=== PATIENT | male | born 1970 | race Caucasian/White ===

== ENCOUNTER 2023-10-01 18:18 | Emergency (ER) | payer BC, SELFPAY ==
[2023-10-01 18:26] VITALS: BP 158/110
--- NOTE | 2023-10-01 19:58 | ED.MUSCINJ ---
HPI-Injury
General
Chief Complaint: Musculo-Skeletal Complaint
Source: patient
Exam Limitations: none
Time Seen by Provider: 10/01/23 19:44
Nursing documentation reviewed up to this point in time: agreed with
Travel History
Have you had any contact with someone who has COVID-19?: No
Do you have any symptoms of coronavirus? Fever > 100 degrees, chills, cough, shortness of breath, sore throat, loss of taste or smell, muscle aches, or headache?: No
History of Present Illness-Injury
Is this injury a work related problem?: No
Is pt an associate of [facility]?: No
Initial Injury comments:
52-year male right hand pain after punching a wall occurred just prior to arrival he is right-hand dominant similar injury many years ago did not see an orthopedist
Past History
Past History
ED Past Medical History: Hypercholesterolemia
ED Past Surgical History: None
Social History
Tobacco: Non-smoker
Personal:
Living: with family
Employment: Employed (Teacher)
Family History
Family History: CAD (Grandfather at 62)
Review of Systems
Review of Systems
Other source history: family
All Other Systems: Not applicable
Musculoskeletal: Reports joint pain and joint swelling
Phy Exam
Physical Exam
Physical Exam:
Physical Exam
General: no apparent distress, not acutely ill
Neck: No jaundice
Lungs: no acute respiratory distress.
Abdomen: normal bowel sounds. not tender. no CVAT
Neuro: alert and oriented.
Skin: Warm and dry
Psychiatric: cooperative
Extremities: Tenderness of the fifth metatarsal no rotational deformity
Injury Course
Orders/Labs/Results
Orders:
Orders
10/01/23 18:29
Hand, Right 3 View [CR Hand - Right Min 3 Views] Urgent
Comment:
Reason For Exam: pain
10/01/23 19:50
Splints/Slings/Crut- Treatment ONCE
10/01/23 19:57
Ibuprofen [Motrin] 600 mg PO NOW STA
MDM/Problems Addressed
Differential Diagnosis Includes:
Fracture contusion strain
MDM/Problems Addressed:
Hand pain
*Radiology
Radiology exam reviewed: radiology read reviewed
*Pulse Oximetry
Patient hypoxic: no
*Critical Care Note
Total Time (30-74mins, 75-104mins- exclusive of procedures): Not Applicable
Update Note
Update Note:
Isolated fifth metacarpal tenderness, without patient reportedly will splint, follow-up nonurgent orthopedics
ED Attending Note
-
Portions of this chart may have been created with voice recognition software.� Occasional wrong word or��sound alike� substitutions may have occurred due to the inherent limitations of voice recognition software.
Discharge Plan
Departure
Patient Disposition: Home (Routine Discharge)
Date of Disposition: 10/01/23
Time of Disposition: 20:01
Patient with high blood pressure during this ER visit?: No
Covid-19: Not Applicable
Discharge Problem:
Closed hand fracture
Instructions: Boxer's Fracture (DC)
Prescriptions:
New
ibuprofen 600 mg tablet
600 mg PO Q6H PRN (Reason: Pain) Qty: 20 0RF
oxycodone 5 mg tablet
5 mg PO Q8H PRN (Reason: Pain) Qty: 10 0RF
No Action
atorvastatin [Lipitor] 20 MG tablet
20 mg PO DAILY
Patient Comments:
Has not taken for 2 months
cetirizine 10 MG tablet
10 mg PO DAILY
ibuprofen 200 MG tablet
400 mg PO Q6HPRN PRN (Reason: pain)
sulfamethoxazole-trimethoprim 1 TABLET tablet
1 tab PO BID Qty: 10 0RF
oxycodone-acetaminophen 5 MG/325 MG tablet
1 - 2 tab PO Q4HPRN PRN (Reason: Pain) Qty: 20 0RF
ibuprofen 800 MG tablet
800 mg PO Q8 Qty: 20 0RF
tamsulosin [Flomax] 0.4 MG capsule
0.4 mg PO Daily Qty: 10 0RF
Referrals:
Christoph Baptiste MD [Active] - Next open appointment
[2023-10-01] MEDS: MOTRIN 600 MG PO (20:51)
[2023-10-01 20:55] VITALS: BP 170/91
[2023-10-01 20:58] VITALS: BP 170/91
== END 2023-10-01 20:59 | disposition home or self-care (01) ==
LOC: EMR 18:18
PROVIDERS: EMERGENCY PHYSICIAN Emergency Medicine; FAMILY PHYSICIAN Family Medicine
DX: S62.91XA Unspecified fracture of right hand, initial encounter for closed fracture (principal); X58.XXXA Exposure to other specified factors, initial encounter; E78.00 Pure hypercholesterolemia, unspecified; Z82.49 Family history of ischemic heart disease and other diseases of the circulatory system
CPT/HCPCS: 99283; 73130

== ENCOUNTER 2025-01-30 20:46 | Emergency (ER) | payer BC, SELFPAY ==
[2025-01-30 20:49] VITALS: BP 214/108
[2025-01-30 20:55] VITALS: BP 175/133
--- NOTE | 2025-01-30 20:59 | ED.GENMED ---
History of Present Illness
General
Chief Complaint: Flank Pain
Source: patient
Exam Limitations: none
Time Seen by Provider: 01/30/25 20:52
History of Present Illness
History of Present Illness:
54yoM with a history of hyperlipidemia, kidney stones, and GERD presenting with his for evaluation of flank pain. Symptoms began fairly abruptly at 5pm this evening. He reports severe pain in his left flank which radiates to the LLQ. He is
also having nausea but denies any vomiting. He denies any dysuria or hematuria. Symptoms feel identical to his previous kidney stones.
Past History
Past History
ED Past Medical History: Hypercholesterolemia
ED Past Surgical History: None
Social History
Tobacco: Non-smoker
Personal:
Living: with family
Employment: Employed (Teacher)
Family History
Family History: CAD (Grandfather at 62)
Phy Exam
Physical Exam
Physical Exam:
Appears uncomfortable, writhing around on stretcher
General Physical Exam
General Presentation: moderate distress
General Skin: warm and dry
General Habitus: normal
General Mental: alert
ENT Exam
ENT Exam: normocephalic
Pulmonary Exam
Pulmonary Exam: no respiratory distress
Gastrointestinal Exam
Gastrointestinal Exam: soft, non distended and other (+Mild tenderness in LLQ. +L CVA tenderness.)
Neurological Exam
Neurological Exam: alert
Nakul Coma Scale
Eye Opening: Spontaneous
Verbal Response: Oriented
Motor Response: Obeys Commands
GCS Total Score: 15
Skin Exam
Skin Exam: normal color and warm/dry
Psychiatric Exam
Psychiatric Exam: normal mood/affect
Course
Orders/Labs/Results
Orders:
Orders
01/30/25 20:57
0.9% Sodium Chloride 1000 ml [Nss] 1,000 ml IV BOLUS
HYDROmorphone [Dilaudid] 1 mg IV NOW STA
Ketorolac [Toradol] 15 mg IV NOW STA
Ondansetron Injectable [Zofran] 4 mg IV NOW STA
01/30/25 20:58
CT Abd/pel Without Iv Or Oral Urgent
Comment:
Reason For Exam: L flank pain, LLQ pain
01/30/25 21:06
Complete Blood Count/With Diff Urgent
Comprehensive Metabolic Panel Urgent
Urinalysis Reflex To Culture Urgent
Date Specimen was Collected: 01/30/25
Time Specimen was Collected: 21:00
Urine Microscopic Reflex Cult Urgent
01/30/25 22:24
HYDROmorphone [Dilaudid] 1 mg IV NOW STA
Ketorolac [Toradol] 15 mg IV NOW STA
Tamsulosin [Flomax] 0.4 mg PO NOW STA
01/30/25 22:37
Ketorolac [Toradol] 15 mg .ROUTE .STK-MED ONE
Abnormal Lab Results
01/30/25
21:06
WBC 12.9 H 10^3/uL
(4.8-10.8)
Absolute Neuts (auto) 10.9 H 10^3/uL
(1.4-6.5)
Neutrophils % 84.1 H %
(42.2-75.2)
Lymphocytes % 9.4 L %
(20.5-51.1)
Chloride 109 H mmol/L
(98-107)
Glucose 138 H mg/dl
(70-99)
Albumin 5.1 H g/dl
(3.5-5.0)
Urine Ketones 3+ A
(Negative)
Ur Occult Blood Reflex 1+ A
(Negative)
Urine RBC 7-10 A /HPF
(0-2)
Urine Bacteria (Reflex) Few A
(Negative)
01/30/25 21:06
05/22/25 21:06
Vital Signs
Initial and Last Documented VS:
Initial Vital Signs
Temp Pulse Resp BP Pulse Ox
97.8 F 58 16 214/108 100
01/30/25 20:49 01/30/25 20:49 01/30/25 20:49 01/30/25 20:49 01/30/25 20:49
Last Documented Vital Signs
Temp Pulse Resp BP Pulse Ox
97.8 F 58 16 175/133 100
01/30/25 20:49 01/30/25 20:49 01/30/25 20:49 01/30/25 20:55 01/30/25 20:49
MDM/Problems Addressed
Differential Diagnosis Includes:
54yoM here with L flank pain. Began abruptly this evening. Radiates to the LLQ. +Nausea. He is hypertensive on arrival with otherwise stable vitals. He is uncomfortable on exam and writhing around on exam. Differential diagnosis includes but is not
limited: kidney stone, pyelonephritis, UTI, diverticulitis, musculoskeletal, doubt but consider AAA
Initial ED plan: Check CBC, CMP, UA, and CT abdomen without contrast. IV Dilaudid, Toradol, Zofran, and fluid bolus for symptoms.
*Critical Care Note
Total Time (30-74mins, 75-104mins- exclusive of procedures): Not Applicable
Update Note
Update Note:
CT confirms a 2mm L UVJ stone. Creatinine 1.1 and there are no signs of infection on urinalysis. Coronary artery calcifications incidentally seen on CT which patient and were notified of. He denies any history of heart disease. Advised
outpatient f/u with cardiology. No indication for hospitalization. Supportive care discussed including hydration, urine straining, and Flomax. Prescriptions given for oxycodone and Zofran. Advised close f/u with urology and ED return precautions
reviewed including fevers and uncontrolled pain. Patient discharged in stable condition.
ED Attending Note
-
Portions of this chart may have been created with voice recognition software.� Occasional wrong word or��sound alike� substitutions may have occurred due to the inherent limitations of voice recognition software.
Discharge Plan
Departure
Patient Disposition: Home (Routine Discharge)
Date of Disposition: 01/30/25
Time of Disposition: :25
Patient with high blood pressure during this ER visit?: Yes
Discharge Problem:
Calculus of distal left ureter, Coronary artery calcification seen on CT scan
Instructions: Kidney Stones (DC), How to Strain Your Urine
Prescriptions:
New
oxycodone 5 mg tablet
5 mg PO Q6H PRN (Reason: Pain) Qty: 12 0RF
ondansetron 4 mg tablet,disintegrating
4 mg PO Q6H PRN (Reason: nausea and vomiting) Qty: 20 0RF
tamsulosin [Flomax] 0.4 mg capsule
0.4 mg PO HS Qty: 7 0RF
No Action
atorvastatin [Lipitor] 20 MG tablet
20 mg PO DAILY
Patient Comments:
Has not taken for 2 months
cetirizine 10 MG tablet
10 mg PO DAILY
ibuprofen 200 MG tablet
400 mg PO Q6HPRN PRN (Reason: pain)
sulfamethoxazole-trimethoprim 1 TABLET tablet
1 tab PO BID Qty: 10 0RF
oxycodone-acetaminophen 5 MG/325 MG tablet
1 - 2 tab PO Q4HPRN PRN (Reason: Pain) Qty: 20 0RF
ibuprofen 800 MG tablet
800 mg PO Q8 Qty: 20 0RF
tamsulosin [Flomax] 0.4 MG capsule
0.4 mg PO Daily Qty: 10 0RF
ibuprofen 600 mg tablet
600 mg PO Q6H PRN (Reason: Pain) Qty: 20 0RF
oxycodone 5 mg tablet
5 mg PO Q8H PRN (Reason: Pain) Qty: 10 0RF
Referrals:
Kendrick Umana MD [Active] -
Phillip Elena MD [Active] -
NONE,* [Family Provider] -
Activity Restrictions/Additional Instructions:
Drink plenty of fluids. Strain your urine and take Flomax until stone has passed.
Take Tylenol and ibuprofen for pain. Take oxycodone only as needed for severe breakthrough pain. Take Zofran as needed for nausea.
Please call tomorrow to schedule a follow-up with urology. Return to the ER with any worsening symptoms including uncontrolled pain or fevers.
You should also see a bobbin sorter for the calcifications seen on your heart arteries on today's CT scan.
Interventions
Interventions:
*Risk Screen - Suicide Last Done: 01/30/25 21:14
*General Assessment Last Done: 01/30/25 20:49
*Neglect/Abuse Screening Last Done: 01/30/25 21:14
*ED- Fall Risk Assessment Last Done: 01/30/25 21:14
*ED COVID-19 Vaccine History Last Done: 01/30/25 20:49
*Nursing Disposition Last Done: 01/30/25 23:05
JD-Mjmhti-Nxaldealzc Assessment Last Done: 01/30/25 21:14
ED-Male Genitourinary Assessment Last Done: 01/30/25 21:14
Discharge Date and Time
Discharge Date/Time: 01/30/25 23:06
Print Language: MAORI
[2025-01-30] MEDS: DILAUDID 1 MG IV ×2 (21:04→22:35)
[2025-01-30] MEDS: NSS 1000 IV (21:05)
[2025-01-30] MEDS: ZOFRAN 4 MG IV (21:06)
[2025-01-30] MEDS: TORADOL 15 MG IV ×2 (21:06→22:37)
[2025-01-30 21:14] LABS: % Basophils 0.4 % (0-2); % Eosinophils 1.1 % (0-6); % Immature Granulocytes 0.3 % (0-0.5); % Lymphocytes 9.4 % (20.5-51.1); % Monocytes 4.7 % (1.7-9.3); % Neutrophils 84.1 % (42.2-75.2); Absolute Basophils 0.1 10^3/uL (0-0.2); Absolute Eosinophils 0.1 10^3/uL (0-0.7); Absolute Lymphocytes 1.2 10^3/uL (1.2-3.4); Absolute Monocytes 0.6 10^3/uL (0.1-0.6); Absolute Neutrophils 10.9 10^3/uL (1.4-6.5); Hematocrit 41.1 % (39.0-52.0); Hemoglobin 14.7 g/dL (13.0-18.0); Mean Corp Hgb Conc. 35.8 g/dL (33.0-37.0); Mean Corpuscular Hgb 30.6 pg (27.0-31.0); Mean Corpuscular Volume 85.4 fL (80.0-94.0); Mean Platelet Volume 9.5 fL (7.4-10.4); Nucleated Red Blood Cells % 0 % (-); Platelet Count 285 10^3/uL (130-400); Red Blood Cell Count 4.81 10^6/uL (4.70-6.10); Red Cell Dist. Width 12.5 % (11.5-14.5); White Blood Cell Count 12.9 10^3/uL (4.8-10.8)
[2025-01-30 21:16] LABS: Urine Albumin Negative (Neg - Trace); Urine Bilirubin Negative (Negative); Urine Character Clear (Clear); Urine Color Yellow; Urine Glucose Negative (Negative); Urine Ketone 3+ (Negative); Urine Leukocyte Negative (Negative); Urine Nitrite Negative (Negative); Urine Occult Blood 1+ (Negative); Urine Specific Gravity 1.015 (<1.030); Urine Urobilinogen Negative (Neg - 1+)
[2025-01-30 21:21] LABS: Urine Mucus Few; Urine Squamous Cell 0-2 /LPF (Few)
[2025-01-30 21:22] LABS: Urine Bacteria Few (Negative); Urine White Cell 0-2 /HPF (0-5)
[2025-01-30 21:35] LABS: ALT (SGPT) 26 U/L (0-50); AST (SGOT) 23 U/L (17-59); Albumin 5.1 g/dl (3.5-5.0); Alkaline Phosphatase 64 U/L (38-126); Blood Urea Nitrogen 13 mg/dl (9-20); Carbon Dioxide 23 mmol/L (22-30); Chloride 109 mmol/L (98-107); Glucose 138 mg/dl (70-99); Potassium 3.7 mmol/L (3.5-5.1); Sodium 140 mmol/L (135-145); Total Bilirubin 1.1 mg/dl (0.2-1.3); Total Protein 7.5 g/dl (6.3-8.2); eGFR > 60.00
[2025-01-30] MEDS: FLOMAX 0.4 MG PO (22:35)
== END 2025-01-30 23:06 | disposition home or self-care (01) ==
LOC: EMR 20:46
PROVIDERS: Physician Assistant; EMERGENCY PHYSICIAN Emergency Medicine
DX: N20.1 Calculus of ureter (principal); R11.0 Nausea; R03.0 Elevated blood-pressure reading, without diagnosis of hypertension; I25.10 Atherosclerotic heart disease of native coronary artery without angina pectoris; E78.00 Pure hypercholesterolemia, unspecified; Z87.442 Personal history of urinary calculi; Z82.49 Family history of ischemic heart disease and other diseases of the circulatory system; Z91.048 Other nonmedicinal substance allergy status
CPT/HCPCS: 99284; 96374; 96375 ×2; 96361; 96376 ×2; 74176; 80053; 81003; 81015; 85025

== ENCOUNTER → 2025-04-08 14:08 | Outpatient (REF) | payer BC, SELFPAY | LOC: RCS 14:08 | PROVIDERS: ATTENDING PHYSICIAN Internal Medicine Cardiovascular Disease; FAMILY PHYSICIAN Family Medicine | DX: R06.02 Shortness of breath (principal) | CPT/HCPCS: 93306 ==

== ENCOUNTER → 2025-04-16 09:12 | Outpatient (REF) | payer BC, SELFPAY | LOC: RCS 09:12 | PROVIDERS: ATTENDING PHYSICIAN Internal Medicine Cardiovascular Disease; FAMILY PHYSICIAN Family Medicine | DX: R06.02 Shortness of breath (principal) | CPT/HCPCS: 93017; 93350 ==

== ENCOUNTER 2025-04-18 12:29 | Day surgery (SDC) | payer BC, SELFPAY ==
[2025-04-18] VITALS (14 sets, daily range): BP systolic 129–163; BP diastolic 77–101
[2025-04-18 12:55] LABS: Hematocrit 38.3 % (39.0-52.0); Hemoglobin 13.4 g/dL (13.0-18.0); Mean Corp Hgb Conc. 35.0 g/dL (33.0-37.0); Mean Corpuscular Volume 88.7 fL (80.0-94.0); Platelet Count 230 10^3/uL (130-400); Red Cell Dist. Width 12.4 % (11.5-14.5)
[2025-04-18] MEDS: LOW STRENGTH ASPIRIN 81 MG PO (13:04)
[2025-04-18 13:10] LABS: Blood Urea Nitrogen 12 mg/dl (9-20); Calcium 9.6 mg/dl (8.4-10.2); Carbon Dioxide 26 mmol/L (22-30); Chloride 107 mmol/L (98-107); Glucose 90 mg/dl (70-99); Potassium 4.3 mmol/L (3.5-5.1); Sodium 139 mmol/L (135-145); eGFR > 60.00
--- NOTE | 2025-04-18 16:05 | ITS.CL.PN ---
[facility] - Procedure Note
Procedure
Procedure Note:
CARDIAC CATHETERIZATION REPORT
Date of Procedure: 04/18/2025
Referring: Dr. Reno Aragon MD
Indication: Atypical angina, positive cardiac stress test
PROCEDURE(S)
1. left heart catheterization
2. coronary angiography
ACCESS: 6F right radial artery (closure: radial band)
CATHETERS
1. 6F JR4
2. 6F JL3.5
MODERATE SEDATION: 25 minutes of moderate sedation was utilized. An independent medical claims processor was present to assist with and help manage the patient's level of consciousness and physiologic status.
HEMODYNAMIC DATA
LV 136/0 (EDP 18) mmHg
AO 131/78 (mean 100) mmHg
CORONARY ANGIOGRAPHY
Dominance: Right
LM: Large, normal
LAD: Large vessel giving rise to 3 small diagonal branches and wrapping around the apex. There is mild diffuse disease up to 30% in the proximal to mid vessel and otherwise mild luminal irregularities distally.
LCx: Large vessel giving rise to a single large marginal branch. There is 30% ostial narrowing and otherwise trivial luminal irregularities only.
RCA: Very large vessel giving rise to a moderate caliber branching RPDA, large LPL1, and moderate caliber LPL2. There there is mild diffuse disease only.
RADIATION: dose 253 mGy; DAP 20.4 Gy*cm2; fluoroscopy time 2.1 min
CONCLUSIONS
1. Nonobstructive coronary artery disease in a right dominant system as described
2. Mildly elevated LV filling pressure and no aortic stenosis on hemodynamic pullback
RECOMMENDATIONS
1. Aggressive secondary prevention of coronary artery disease
Copy to: Dr. Reno Aragon MD (bank boss); Dr. Graciela Potter DO (PCP)
Signed: Tung Allen MD, PhD
== END 2025-04-18 18:05 | disposition home or self-care (01) ==
LOC: CATH 12:29
PROVIDERS: ATTENDING PHYSICIAN Student in an Organized Health Care Education/Training Program; FAMILY PHYSICIAN Family Medicine; OTHER PHYSICIAN Internal Medicine Cardiovascular Disease
DX: I25.119 Atherosclerotic heart disease of native coronary artery with unspecified angina pectoris (principal); E78.2 Mixed hyperlipidemia; R73.03 Prediabetes; Z79.899 Other long term (current) drug therapy
CPT/HCPCS: 99152; 99153; 80048; 85027; 93458; C1894; Q9967